=== PATIENT | female | born 1975 | race Hispanic/Latino ===

== ENCOUNTER 2024-06-15 11:25 | Emergency (ER) | payer OTHER ==
[~2024-06-15] VITALS: Ht 162.6 cm; Wt 93.0 kg
[2024-06-15 12:00] VITALS: PULSE 72; RESP 16; O2SAT 100
[2024-06-15] MEDS ORDERED: Morphine 4mg INJECTION 4 MG/ML INJ IV ONE (12:15)
[2024-06-15 12:59] LABS: BASOPHILS % 0.2 % (0.0-1.0); EOSINOPHILS # (AUTO) 0.1 (0.0-0.4); EOSINOPHILS % 0.6 % (0.0-6.0); HEMATOCRIT 45.5 % (34.2-44.1); HEMOGLOBIN 13.8 g/dL (12.0-16.0); LYMPHOCYTES # (AUTO) 0.7 (1.0-3.2); LYMPHOCYTES % 6.7 % (18.0-39.1); MEAN CORPUSCULAR HEMOGLOBIN 25.6 pg (28-32); MEAN CORPUSCULAR HGB CONC 30.3 g/dL (31-35); MEAN CORPUSCULAR VOLUME 84.4 fL (81-99); MONOCYTES # (AUTO) 0.3 (0.2-0.8); MONOCYTES % 2.9 % (4.4-11.3); NEUTROPHILS # (AUTO) 9.4 (2.1-6.9); NEUTROPHILS % 89.2 % (38.7-80.0); PLATELET COUNT 272 x10e3/uL (140-360); RED BLOOD COUNT 5.39 x10e6/uL (3.6-5.1); RED CELL DISTRIBUTION WIDTH 13.9 % (11.7-14.4); WHITE BLOOD COUNT 10.54 x10e3/uL (4.8-10.8)
[2024-06-15 13:17] LABS: ALBUMIN 3.7 g/dL (3.5-5.0); ANION GAP 12.5 mmol/L (8-16); BILIRUBIN,TOTAL 0.4 mg/dL (0.2-1.2); CREATININE, SERUM 0.64 mg/dL (0.57-1.11); POTASSIUM 3.5 mmol/L (3.5-5.1); TOTAL PROTEIN 7.5 g/dL (6.5-8.1)
[2024-06-15] MEDS ORDERED: IOPAMIDOL 370 MG/ML 100 ML INFUS..BTL INJ ONE (13:27)
[2024-06-15] MEDS ORDERED: SODIUM CHLORIDE 0.9% 1000ML 1,000 ML ONE (14:46)
[2024-06-15] MEDS ORDERED: ONDANSETRON HCL INJ 2MG/ML 2ML 2 MG/ML VIAL ONE (14:46)
[2024-06-15] MEDS: ONDANSETRON HCL INJ 2MG/ML 2ML 2 MG/ML VIAL IV STA (14:49)
[2024-06-15] MEDS: SODIUM CHLORIDE 0.9% 1000ML 1,000 ML IV ONE (14:49)
[2024-06-15] MEDS: Morphine 4mg INJECTION 4 MG/ML INJ IV ONE (15:18)
[2024-06-15] MEDS ORDERED: ONDANSETRON ODT4 MG PO (15:27)
[2024-06-15] MEDS ORDERED: PEPCID20 MG PO (15:27)
[2024-06-15] MEDS: FAMOTIDINE 20 MG/2 ML VIAL IV STA (17:03)
== END 2024-06-15 17:10 | disposition home or self-care (01) ==
LOC: ER 12:04
DX: R10.13 Epigastric pain (principal); K29.70 Gastritis, unspecified, without bleeding; R11.2 Nausea with vomiting, unspecified; Z98.84 Bariatric surgery status
CPT/HCPCS: 36415; 74177; 80053; 83690; 84702; 85025; 93005; 99284; J2270; J2405; J7030; Q9967